=== PATIENT | male | born 1960 | race African-American/Black ===

== ENCOUNTER 2017-01-01 19:50 | Emergency (ER) | payer MEDICAID, OTHER ==
[~2017-01-01] VITALS: Ht 175.3 cm; Wt 59.0 kg
[2017-01-02] MEDS ORDERED: IBUPROFEN 800MG TABLET PO ONE
[2017-01-02 01:31] VITALS: BP 144/78
== END 2017-01-02 01:32 | disposition home or self-care (01) ==
LOC: ER 19:50
DX: S16.1XXA Strain of muscle, fascia and tendon at neck level, initial encounter (principal); S39.012A Strain of muscle, fascia and tendon of lower back, initial encounter; V49.59XA Passenger injured in collision with other motor vehicles in traffic accident, initial encounter; Y93.89 Activity, other specified; Y92.410 Unspecified street and highway as the place of occurrence of the external cause; R03.0 Elevated blood-pressure reading, without diagnosis of hypertension; F17.210 Nicotine dependence, cigarettes, uncomplicated; F12.90 Cannabis use, unspecified, uncomplicated
CPT/HCPCS: 72100; 99284; Z7610